=== PATIENT | female | born 1995 | race Caucasian/White ===

== ENCOUNTER 2017-01-13 17:59 | Emergency (ER) | payer OTHER ==
[~2017-01-13] VITALS: Ht 165.1 cm; Wt 99.0 kg
[2017-01-13 18:03] VITALS: TEMP 37.9; Ht 165.1 cm; Wt 99.0 kg
[2017-01-13] MEDS ORDERED: SODIUM CHLORIDE 0.9% 1000ML 2,000 ML IV STA (18:23)
[2017-01-13] MEDS ORDERED: ONDANSETRON 8 MG/54 ML D5W IV STA (18:23)
[2017-01-13] MEDS ORDERED: ACETAMINOPHEN 500 MG TAB PO STA (18:23)
[2017-01-13] MEDS ORDERED: BCPILLS PO (19:12)
[2017-01-13] MEDS ORDERED: VORT1TAB3 PO (19:13)
[2017-01-13 19:14] LABS: BASO % 0.2 %; BASO ABS # 0.03 K/uL (0-0.2); COMPLETE YES; EOS % 0.4 %; HEMATOCRIT 39.8 % (37-47); IG% 0.3 %; LYMPH % 11.3 %; LYMPH ABS # 1.77 K/uL (1.2-3.4); MEAN CELL VOLUME 89.6 fL (80-100); MEAN CORPUSCULAR HEMOGLOBIN 30.6 pg (25-34); MEAN CORPUSCULAR HGB CONC 34.2 g/dl (32-36); MEAN PLATELET VOLUME 9.6 fL (7.4-10.4); MONO % 6.3 %; NEUT % 81.5 %; PLATELET COUNT 321 K/uL (130-400); RED BLOOD COUNT 4.44 M/uL (4.2-5.4); WHITE BLOOD COUNT 15.69 K/uL (4.8-10.8)
[2017-01-13 19:17] LABS: URINE APPEARANCE CLEAR (CLEAR); URINE BILIRUBIN NEG (NEG); URINE COLOR YELLOW; URINE EPITHELIAL CELL AUTO >30 /lpf (0-5); URINE NITRITE NEG (NEG); URINE SPECIFIC GRAVITY 1.019 (1.000-1.030); UROBILINOGEN NEG (NEG); ZZUR CULT IF INDIC CLEAN CATCH NO
[2017-01-13 19:19] LABS: MANUAL MICROSCOPIC REQUIRED? NO; REVIEW REQ? NO
[2017-01-13 19:33] LABS: ALT/SGPT 28 U/L (12-78); BLOOD UREA NITROGEN 4 mg/dl (7-18); BUN/CREATININE RATIO 5.5 (10-20); CALCIUM 8.7 mg/dl (8.5-10.1); CARBON DIOXIDE 25 mmol/L (21-32); CHLORIDE 101 mmol/L (98-107); CREATININE 0.77 mg/dl (0.60-1.20); GLUCOSE 92 mg/dl (70-99); POTASSIUM 3.6 mmol/L (3.5-5.1); SODIUM 135 mmol/L (136-145)
[2017-01-13 19:36] LABS: ALKALINE PHOSPHATASE 88 U/L (45-117); AST/SGOT 31 U/L (15-37)
--- NOTE | 2017-01-13 20:26 | DIAGNOSTIC IMAGING REPORT ---
CT OF THE ABDOMEN AND PELVIS WITH CONTRAST CLINICAL HISTORY: Left flank pain and fever. COMPARISON STUDY: None. TECHNIQUE: Following IV administration of 116 mL of Optiray-320, axial images of the abdomen and pelvis were obtained from the lung bases to the proximal femurs. Images were reviewed in the axial, sagittal, and coronal planes. IV contrast was administered without complication. CT DOSE: 740.69 mGy.cm FINDINGS: Lung bases are clear. There is suspected fatty infiltration of the liver. The spleen, adrenal glands, kidneys and pancreas are normal. There is no biliary or pancreatic ductal dilatation. No peripancreatic or pericholecystic infiltration is present. There is slight prominence of both collecting systems without lolis hydronephrosis. There are no ureteral calculus. The caliber and wall thickness of small and large bowel are normal. The appendix is normal. There is no free fluid or lymphadenopathy. No suspicious skeletal lesions are identified. IMPRESSION: 1. No acute process within the abdomen or pelvis. 2. Fatty infiltration of the liver. Electronically signed by: Elias Aquino M.D. 01/13/2017 8:25 PM Dictated Date/Time: 01/13/2017 8:19 PM
--- NOTE | 2017-01-13 21:12 | EMERGENCY ROOM VISIT NOTE ---
History Report prepared by Jose: Cyrus Nagel Under the Supervision of: Dr. Jonah Rutherford M.D. First contact with patient: 18:22 Chief Complaint: FLU LIKE SX Stated Complaint: ABD PAIN,NAUSEA,VOMITING,BODY ACHES History of Present Illness The patient is a 21 year old female who presents to the Emergency Room with complaints of flu like symptoms starting last night. She currently rates her discomfort as a 3/10 in severity. The patient states that last night he was woken up with abdominal pain in her left side. The patient states that this morning she felt nauseous on the bus to class, and she states once she got off she went to the bathroom, and she vomited. She states that she left class and then went home for the rest of the day. She states that she has no appetite, and when she tried to eat soup it just made her more nauseous. Additionally, the patient is complaining of a fever, diarrhea, neck stiffness, headache, ear pain, eye pain, and some back pain. The patient states that she has a history of stomach issues, and she is getting a colonoscopy next week. She states that she went to [facility], and her flu test came back negative. Additionally she got a sonogram done in October, and everything came back normal. Pt denies LOC , chills, diaphoresis, visual changes, chest pain, breathing difficulties, melena, hematochezia, urinary symptoms, numbness, weakness, lymphadenopathy, rash, or other complaints. Source of History: patient Onset: last night Position: other (global) Quality: other (flu like symptoms) Modifying Factors (Worsening): eating Associated Symptoms: + abdominal pain, + back pain, + diarrhea, + fevers, + headache, + nausea, + neck pain, + vomiting Review of Systems See HPI for pertinent positives and negatives. A total of ten systems were reviewed and were otherwise negative. Past Medical & Surgical Medical Problems: (1) Diarrhea Family History Patient reports no known family medical history. Social History Smoking Status: Never Smoker Marital Status: single Occupation Status: student Current/Historical Medications Scheduled Control Pills ( Control Pills), 1 TAB PO DAILY Vortioxetine HBr (Trintellix), 20 MG PO DAILY Allergies Coded Allergies: No Known Allergies (Unverified , 01/13/17) Physical Exam Vital Signs Date Time Temp Pulse Resp B/P Pulse Ox O2 Delivery O2 Flow Rate FiO2 01/13/17 19:53 86 20 118/74 99 Room Air 01/13/17 19:17 92 01/13/17 19:00 90 20 112/60 98 Room Air 01/13/17 18:03 37.9 88 17 146/86 100 Room Air Physical Exam GENERAL: Awake, alert, well-appearing, in no distress HENT: TMs are normal. Normocephalic, atraumatic. Oropharynx unremarkable. EYES: Normal conjunctiva. Sclera non-icteric. NECK: Supple. No nuchal rigidity or meningeal findings. FROM. No JVD. RESPIRATORY: Clear to auscultation. CARDIAC: Regular rate, normal rhythm. Extremities warm and well perfused. Pulses equal. ABDOMEN: Left lower and upper quadrant tenderness. Soft, non-distended. No rebound or guarding. No masses. RECTAL: Deferred. MUSCULOSKELETAL: There is left CVA tenderness to palpation. Chest examination reveals no tenderness. The back is symmetrical on inspection without obvious abnormality. No joint edema. LOWER EXTREMITIES: Calves are equal size bilaterally and non-tender. No edema. No discoloration. NEURO: Normal sensorium. No sensory or motor deficits noted. SKIN: No rash or jaundice noted. Medical Decision & Procedures ER Provider Diagnostic Interpretation: Radiology results as stated below per my review and radiologist interpretation CT OF THE ABDOMEN AND PELVIS WITH CONTRAST CLINICAL HISTORY: Left flank pain and fever. COMPARISON STUDY: None. TECHNIQUE: Following IV administration of 116 mL of Optiray-320, axial images of the abdomen and pelvis were obtained from the lung bases to the proximal femurs. Images were reviewed in the axial, sagittal, and coronal planes. IV contrast was administered without complication. CT DOSE: 740.69 mGy.cm FINDINGS: Lung bases are clear. There is suspected fatty infiltration of the liver. The spleen, adrenal glands, kidneys and pancreas are normal. There is no biliary or pancreatic ductal dilatation. No peripancreatic or pericholecystic infiltration is present. There is slight prominence of both collecting systems without lolis hydronephrosis. There are no ureteral calculus. The caliber and wall thickness of small and large bowel are normal. The appendix is normal. There is no free fluid or lymphadenopathy. No suspicious skeletal lesions are identified. IMPRESSION: 1. No acute process within the abdomen or pelvis. 2. Fatty infiltration of the liver. Electronically signed by: Elias Aquino M.D. 01/13/2017 8:25 PM Dictated Date/Time: 01/13/2017 8:19 PM Laboratory Results 01/13/17 18:55 Red Blood Count 4.44, Mean Corpuscular Volume 89.6, Mean Corpuscular Hemoglobin 30.6, Mean Corpuscular Hemoglobin Concent 34.2, Mean Platelet Volume 9.6, Neutrophils (%) (Auto) 81.5, Lymphocytes (%) (Auto) 11.3, Monocytes (%) (Auto) 6.3, Eosinophils (%) (Auto) 0.4, Basophils (%) (Auto) 0.2, Neutrophils # (Auto) 12.80, Lymphocytes # (Auto) 1.77, Monocytes # (Auto) 0.99, Eosinophils # (Auto) 0.06, Basophils # (Auto) 0.03 01/13/17 18:55 Test 01/13/17 18:55 01/13/17 18:58 White Blood Count 15.69 K/uL (4.8-10.8) Red Blood Count 4.44 M/uL (4.2-5.4) Hemoglobin 13.6 g/dL (12.0-16.0) Hematocrit 39.8 % (37-47) Mean Corpuscular Volume 89.6 fL (80-100) Mean Corpuscular Hemoglobin 30.6 pg (25-34) Mean Corpuscular Hemoglobin Concent 34.2 g/dl (32-36) Platelet Count 321 K/uL (130-400) Mean Platelet Volume 9.6 fL (7.4-10.4) Neutrophils (%) (Auto) 81.5 % Lymphocytes (%) (Auto) 11.3 % Monocytes (%) (Auto) 6.3 % Eosinophils (%) (Auto) 0.4 % Basophils (%) (Auto) 0.2 % Neutrophils # (Auto) 12.80 K/uL (1.4-6.5) Lymphocytes # (Auto) 1.77 K/uL (1.2-3.4) Monocytes # (Auto) 0.99 K/uL (0.11-0.59) Eosinophils # (Auto) 0.06 K/uL (0-0.5) Basophils # (Auto) 0.03 K/uL (0-0.2) RDW Standard Deviation 41.3 fL (36.4-46.3) RDW Coefficient of Variation 12.6 % (11.5-14.5) Immature Granulocyte % (Auto) 0.3 % Immature Granulocyte # (Auto) 0.04 K/uL (0.00-0.02) Anion Gap 9.0 mmol/L (3-11) Est Creatinine Clear Calc Drug Dose 134.6 ml/min Estimated GFR () 127.9 Estimated GFR (Non- 110.4 BUN/Creatinine Ratio 5.5 (10-20) Calcium Level 8.7 mg/dl (8.5-10.1) Total Bilirubin 0.4 mg/dl (0.2-1) Direct Bilirubin < 0.1 mg/dl (0-0.2) Aspartate Amino Transf (AST/SGOT) 31 U/L (15-37) Alanine Aminotransferase (ALT/SGPT) 28 U/L (12-78) Alkaline Phosphatase 88 U/L (45-117) Total Protein 7.5 gm/dl (6.4-8.2) Albumin 3.3 gm/dl (3.4-5.0) Lipase 107 U/L (73-393) Urine Color YELLOW Urine Appearance CLEAR (CLEAR) Urine pH 8.0 (4.5-7.5) Urine Specific [place] 1.019 (1.000-1.030) Urine Protein NEG (NEG) Urine Glucose (UA) NEG (NEG) Urine Ketones TRACE (NEG) Urine Occult Blood NEG (NEG) Urine Nitrite NEG (NEG) Urine Bilirubin NEG (NEG) Urine Urobilinogen NEG (NEG) Urine Leukocyte Esterase TRACE (NEG) Urine WBC (Auto) 1-5 /hpf (0-5) Urine RBC (Auto) 0-4 /hpf (0-4) Urine Hyaline Casts (Auto) 1-5 /lpf (0-5) Urine Epithelial Cells (Auto) >30 /lpf (0-5) Urine Bacteria (Auto) NEG (NEG) Urine Test NEG (NEG) Laboratory results reviewed by me Medications Administered Medications (Trade) Dose Ordered Sig/[place] Route Start Time Stop Time Status Last Admin Dose Admin Ondansetron HCl 8 mg 8 mg NOW STAT IV 01/13/17 18:23 01/13/17 18:26 DC 01/13/17 18:55 8 MG Sodium Chloride (Nss 1000ml) 2,000 ml @ 999 mls/hr Q2H1M STAT IV 01/13/17 18:23 01/13/17 20:23 DC 01/13/17 18:56 999 MLS/HR Acetaminophen (Tylenol Tab) 1,000 mg NOW STAT PO 01/13/17 18:23 01/13/17 18:26 DC 01/13/17 18:46 1,000 MG ED Course 1821: The patient was evaluated in room C5. A complete history and physical exam was performed. 1822: Tylenol Tab 1000mg PO, Sodium Chloride 2000 ml @ 999 mls/hr IV, Zofran 8mg IV 2038: I reevaluated the patient. Discussed results and discharge instructions: She verbalized understanding and agreement. The patient is ready for discharge. Medical Decision Triage Nursing notes reviewed. The patient's presentation and history were concerning for abdominal pain and flulike symptoms. Etiologies such as viral syndrome, diverticulitis, obstruction, inflammatory bowel disease, renal colic, PUD, biliary pathology, pancreatitis, mesenteric ischemia, aortic pathology, infections, genitourinary, UTI, perforated viscus, appendicitis, as well as others were entertained. The patient was evaluated. She was treated with Tylenol, Zofran, and normal saline hydration. On reassessment she was feeling better. She mild leukocytosis on CBC. Chemistry panel was unremarkable. Urinalysis was negative. The patient is not . The patient underwent CT imaging and this was negative for any pathology in the abdomen or pelvis. She was feeling much better and I suspect that this is likely viral syndrome. She notes having some abdominal issues going on and has a pending GI evaluation. I think this is reasonable follow-up. Since this is occurring next week, the patient follow- up this week with [facility]. She will use Tylenol or Motrin. She will hydrate. If she worsens in any way she will be back to the Emergency Room for reevaluation.I gave my usual and customary discussion regarding this issue. By the evaluation outlined above other emergent etiologies such as those listed in the differential, as well as others, were deemed relatively unlikely. The patient was informed about the findings as listed above. All questions were answered and she was pleased with the treatment. Return instructions were outlined and the patient was discharged in stable condition. The patient was referred to [facility] and her GI for follow-up for a recheck of the current condition. The chart was completed utilizing [employer] Speech voice recognition software. Grammatical errors, random word insertions, pronoun errors, and incomplete sentences are an occasional consequence of this system due to software limitations, ambient noise, and hardware issues. Any formal questions or concerns about the content, text, or information contained within the body of this dictation should be directly addressed to the physician for clarification. Impression Primary Impression: Left sided abdominal pain Additional Impressions: Nausea & vomiting Flu-like symptoms Scribe Attestation The scribe's documentation has been prepared under my direction and personally reviewed by me in its entirety. I confirm that the note above accurately reflects all work, treatment, procedures, and medical decision making performed by me. Departure Information Dispostion Home / Self-Care Referrals No Doctor, Assigned (PCP) Forms HOME CARE DOCUMENTATION FORM, IMPORTANT VISIT INFORMATION, School Instructions Patient Instructions My [facility] Additional Instructions ABDOMINAL PAIN INSTRUCTIONS: Ibuprofen(Motrin, Advil) may be used for fever or pain. Use 600mg every six hours as needed. Take with food. Avoid using more than 2400mg in a 24 hour period. Do not use 2400mg per day for more than three consecutive days without physician direction. Prolonged inappropriate use can lead to stomach upset or ulcers. (AND/OR) Acetaminophen(Tylenol) may be used for fever or pain. Use 1000mg every six hours as needed. Avoid using more than 4000mg in a 24 hour period. Rest and drink plenty of fluids as tolerated. Slow sips of water or sports drinks are recommended instead of large amounts all at once. Continue current medications. Once your stomach is settled start with a clear liquid diet (jello, soup broth, etc.) and then advance as tolerated. You should avoid full, heavy meals for about 24 hrs from the time your symptoms resolved. Return to the ER immediately for worsening or persistent abdominal pain, vomiting, fevers, chest pains, difficulty breathing, black or bloody stools, worsening of your condition, or as needed. Follow up with your primary physician in 2-3 days for a recheck of your current condition. Follow up with Neurology for the Colonoscopy As Scheduled. Problem Qualifiers
[2017-01-13 21:18] VITALS: BP 125/80; PULSE 87; O2SAT 97
== END 2017-01-13 21:19 | disposition home or self-care (01) ==
LOC: C.EDB 18:01 → C.EDC 21:19
DX: R10.9 Unspecified abdominal pain (principal); R11.2 Nausea with vomiting, unspecified; R68.89 Other general symptoms and signs; Z79.3 Long term (current) use of hormonal contraceptives